=== PATIENT | female | born 1975 | race Caucasian/White ===

== ENCOUNTER 2016-09-21 13:34 | Emergency (ER) | payer SELFPAY ==
[~2016-09-21] VITALS: Ht 157.5 cm; Wt 108.9 kg
[2016-09-21 14:07] LABS: BASOPHILS % (AUTO) 0 % (0-10); EOSINOPHILS # (AUTO) 0.1 10^3/uL (0.0-0.3); EOSINOPHILS % (AUTO) 1 % (0-10); LYMPHOCYTES # (AUTO) 3.3 X 10^3 (1.0-4.0); LYMPHOCYTES % (AUTO) 31 % (12-44); MEAN CORPUSCULAR HEMOGLOBIN 27 PG (25-34); MEAN CORPUSCULAR HGB CONC 32 G/DL (32-36); MEAN CORPUSCULAR VOLUME 84 FL (80-99); MEAN PLATELET VOLUME 9.8 FL (7.4-10.4); MONOCYTES # (AUTO) 0.7 X 10^3 (0.0-1.0); MONOCYTES % (AUTO) 7 % (0-12); NEUTROPHILS # (AUTO) 6.5 X 10^3 (1.8-7.8); NEUTROPHILS % (AUTO) 62 % (42-75); PLATELET COUNT 351 10^3/uL (130-400); RED BLOOD COUNT 4.42 10^6/uL (4.35-5.85); RED CELL DISTRIBUTION WIDTH 14.1 % (10.0-14.5); WHITE BLOOD COUNT 10.6 10^3/uL (4.3-11.0)
[2016-09-21 14:26] LABS: INR 0.9 (0.8-1.4); PROTHROMBIN TIME PATIENT 12.3 SEC (12.2-14.7)
--- NOTE | 2016-09-21 14:32 | Diagnostic Imaging Report ---
Portable upright radiograph of the chest. INDICATION: Palpitations. FINDINGS: The lungs appear clear. The heart size is normal. There is no effusion or pneumothorax. The mediastinum and jennifer appear unremarkable. IMPRESSION: Unremarkable exam. Dictated by: Dictated on workstation # [id number]
[2016-09-21 14:37] LABS: ALANINE AMINOTRANSFERASE 14 U/L (0-55); ALBUMIN 3.7 GM/DL (3.2-4.5); ANION GAP 5 MMOL/L (5-14); ASPARTATE AMINO TRANSFERASE 15 U/L (5-34); BILIRUBIN,TOTAL 0.5 MG/DL (0.1-1.0); BLOOD UREA NITROGEN 8 MG/DL (7-18); BUN/CREATININE RATIO 10 (0-20); CALCIUM 9.1 MG/DL (8.5-10.1); CARBON DIOXIDE 29 MMOL/L (21-32); CHLORIDE 104 MMOL/L (98-107); GFR ESTIMATED > 60; GLUCOSE 87 MG/DL (70-105); MAGNESIUM 1.9 MG/DL (1.8-2.4); POTASSIUM 4.4 MMOL/L (3.6-5.0); SODIUM 138 MMOL/L (135-145); TOTAL PROTEIN 6.7 GM/DL (6.4-8.2)
[2016-09-21 14:43] LABS: MYOGLOBIN SERUM 24.7 NG/ML (10.0-92.0)
--- NOTE | 2016-09-21 16:05 | ED Chest Pain ---
General Chief Complaint: Cardiac/General Problems Stated Complaint: DIZZY/LIGHTHEADED/SOB/PALPITATIONS Nursing Triage Note: Pt reports feeling lightheaded and dizzy since 0700 this morning. Pt then developed pain between her shoulders and palpitations at 1200 today and reports SOA w/ activity. Pt reports she is worried because of a strong family history of cardiac issues at a young age. Nursing Sepsis Screen: No Definite Risk Source: patient Exam Limitations: no limitations History of Present Illness Time seen by provider: 14:00 Initial Comments This 40-year-old woman presents to the emergency room with complaints of lightheadedness, dizziness, palpitations, mild chest discomfort, and pain between the shoulder blades rated as 5/10 intermittently since last night. Pain this morning started at 07:30. She is concerned because of a strong family history of heart disease. She reports her brother had an NE at age 28, and she had a sister who at age 39 suddenly. She reports her sister's autopsy demonstrated coronary artery disease. Patient's father also has history of heart disease, and he had a CABG. Patient does not smoke and is not diabetic. Patient previously saw Dr. Montero in [place] for cardiology. She reports having 2 cardiac catheters with the last one being in 2008. She reports no significant abnormalities on the heart catheters. Allergies and Home Medications Allergies Coded Allergies: clindamycin (Verified Allergy, Severe, 09/21/16) metronidazole (Verified Allergy, Severe, 09/21/16) Review of Systems Constitutional: no symptoms reported EENTM: No Symptoms Reported Respiratory: No Symptoms Reported Cardiovascular: See HPI Gastrointestinal: No Symptoms Reported Genitourinary: No Symptoms Reported Musculoskeletal: see HPI Skin: no symptoms reported Psychiatric/Neurological: No Symptoms Reported Endocrine: No Symptoms Reported Past Nmtdzmi-Kkzngp-Xrkktp Hx Patient Social History Alcohol Use: Rarely Uses Recreational Drug Use: No Smoking Status: Never a Smoker Recent Foreign Travel: No Contact w/Someone Who Travel: No Recent Infectious Disease Expo: No Recent Hopitalizations: No Surgeries HX Surgeries: Yes Surgeries: Appendectomy, Cardiac (heart catheter 2, reportedly negative), Section, Gallbladder Respiratory Hx Respiratory Disorders: No Cardiovascular Hx Cardiac Disorders: Yes Cardiac Disorders: Hypertension Neurological Hx Neurological Disorders: No Reproductive System : No Genitourinary Hx Genitourinary Disorders: No Gastrointestinal Hx Gastrointestinal Disorders: No Musculoskeletal Hx Musculoskeletal Disorders: No Endocrine Hx Endocrine Disorders: No HEENT HX ENT Disorders: No Cancer Hx Cancer: No Psychosocial Hx Psychiatric Problems: No Integumentary HX Skin/Integumentary Disorder: No Physical Exam Vital Signs Vital Sign - Last 12Hours 09/21/16 13:53 Temp 97.7 Pulse 79 Resp 18 B/P (MAP) 128/90 Pulse Ox 97 O2 Delivery Room Air Capillary Refill : Less Than 3 Seconds General Appearance: No Apparent Distress, WD/WN, Obese HEENT: PERRL/EOMI, Normal ENT Inspection Neck: Normal Inspection Respiratory: Chest Non Tender, Lungs Clear, Normal Breath Sounds, No Accessory Muscle Use, No Respiratory Distress Cardiovascular: Regular Rate, Rhythm, No Edema, Normal Peripheral Pulses Gastrointestinal: Non Tender, Soft Extremity: Normal Inspection, Non Tender, No Calf Tenderness, No Pedal Edema, Other (negative Clarence) Neurologic/Psychiatric: Alert, Oriented x3, No Motor/Sensory Deficits, Normal Mood/Affect, chemical dependency therapist II-XII Norm as Tested Skin: Normal Color, Warm/Dry Progress/Results/Core Measures Results/Orders Lab Results Laboratory Tests Test 09/21/16 14:00 Range/Units White Blood Count 10.6 4.3-11.0 10^3/uL Red Blood Count 4.42 4.35-5.85 10^6/uL Hemoglobin 11.7 11.5-16.0 G/DL Hematocrit 37 35-52 % Mean Corpuscular Volume 84 80-99 FL Mean Corpuscular Hemoglobin 27 25-34 PG Mean Corpuscular Hemoglobin Concent 32 32-36 G/DL Red Cell Distribution Width 14.1 10.0-14.5 % Platelet Count 351 130-400 10^3/uL Mean Platelet Volume 9.8 7.4-10.4 FL Neutrophils (%) (Auto) 62 42-75 % Lymphocytes (%) (Auto) 31 12-44 % Monocytes (%) (Auto) 7 0-12 % Eosinophils (%) (Auto) 1 0-10 % Basophils (%) (Auto) 0 0-10 % Neutrophils # (Auto) 6.5 1.8-7.8 X 10^3 Lymphocytes # (Auto) 3.3 1.0-4.0 X 10^3 Monocytes # (Auto) 0.7 0.0-1.0 X 10^3 Eosinophils # (Auto) 0.1 0.0-0.3 10^3/uL Basophils # (Auto) 0.0 0.0-0.1 10^3/uL Prothrombin Time 12.3 12.2-14.7 SEC INR Comment 0.9 0.8-1.4 Activated Partial Thromboplast Time 27 24-35 SEC D-Dimer 0.47 0.00-0.49 UG/ML Sodium Level 138 135-145 MMOL/L Potassium Level 4.4 3.6-5.0 MMOL/L Chloride Level 104 98-107 MMOL/L Carbon Dioxide Level 29 21-32 MMOL/L Anion Gap 5 5-14 MMOL/L Blood Urea Nitrogen 8 7-18 MG/DL Creatinine 0.80 0.60-1.30 MG/DL Estimat Glomerular Filtration Rate > 60 BUN/Creatinine Ratio 10 0-20 Glucose Level 87 70-105 MG/DL Calcium Level 9.1 8.5-10.1 MG/DL Magnesium Level 1.9 1.8-2.4 MG/DL Total Bilirubin 0.5 0.1-1.0 MG/DL Aspartate Amino Transf (AST/SGOT) 15 5-34 U/L Alanine Aminotransferase (ALT/SGPT) 14 0-55 U/L Alkaline Phosphatase 71 40-136 U/L Myoglobin 24.7 10.0-92.0 NG/ML Troponin I < 0.30 <0.30 NG/ML Total Protein 6.7 6.4-8.2 GM/DL Albumin 3.7 3.2-4.5 GM/DL My Orders Orders - BRANDI RABAGO MD Cbc With Automated Diff (09/21/16 13:59) Magnesium (09/21/16 13:59) Chest 1 View, Ap/Pa Only (09/21/16 13:59) Ekg Tracing (09/21/16 13:59) Cardiac Profile 1 (09/21/16 13:59) Comprehensive Metabolic Panel (09/21/16 13:59) Myoglobin Serum (09/21/16 13:59) Protime With Inr (09/21/16 13:59) Partial Thromboplastin Time (09/21/16 13:59) O2 (09/21/16 13:59) Monitor-Rhythm Ecg Trace Only (09/21/16 13:59) Saline Lock/Iv-Start (09/21/16 13:59) Fibrin Degradation Products (09/21/16 14:11) Aspirin Tablet (Aspirin Tablet) (09/21/16 16:15) Medications Given in ED Current Medications Medications Dose Ordered Sig/Teresa Route Start Time Stop Time Status Last Admin Dose Admin Aspirin 325 mg ONCE ONCE PO 09/21/16 16:15 09/21/16 16:15 DC 09/21/16 16:09 325 MG Vital Signs/I&O Vital Sign - Last 12Hours 09/21/16 09/21/16 13:53 16:13 Temp 97.7 97.7 Pulse 79 78 Resp 18 18 B/P (MAP) 128/90 Pulse Ox 97 98 O2 Delivery Room Air Room Air Blood Pressure Mean: 103 Progress Note : Progress Note Patient's pain resolved without interventions. Workup was unremarkable. Case was reviewed with Dr. Abraham. He recommended prompt follow-up in the clinic. Development of significant coronary artery disease since her cardiac catheter in 2008 is unlikely in that time frame. Patient is aware that coronary artery disease cannot be completely ruled out emergency room. She is comfortable returning home with outpatient follow-up. ECG Initial ECG Impression Date: Sep 21, 2016 Initial ECG Impression Time: 13:55 Initial ECG Rate: 83 Initial ECG Rhythm: Normal Sinus Comment Normal sinus rhythm with no ST elevation or depression. Borderline left axis deviation. No abnormal intervals. Diagnostic Imaging Diagonstic Imaging: Xray Plain Films/CT/US/NM/MRI: chest Comments NAME: GARIMA ORLANDO MED REC#: [id number] PT STATUS: DEP ER : 1975 PHYSICIAN: BRANDI RABAGO MD ADMIT DATE: 09/21/16/ER Signed Date of Exam: 09/21/16 CHEST 1 VIEW, AP/PA ONLY Portable upright radiograph of the chest. INDICATION: Palpitations. FINDINGS: The lungs appear clear. The heart size is normal. There is no effusion or pneumothorax. The mediastinum and jennifer appear unremarkable. IMPRESSION: Unremarkable exam. Dictated by: Dictated on workstation # [id number] Dict: 09/21/16 1427 Trans: 09/21/16 3419 Interpreted by: AISHA HADLEY MD Electronically signed by: AISHA HADLEY MD 09/21/16 3997 Departure Impression Impression: Primary Impression: Chest pain Qualified Codes: R07.9 - Chest pain, unspecified Additional Impressions: Upper back pain Palpitations Disposition: 01 HOME, SELF-CARE Condition: Improved Departure-Patient Inst. Decision time for Depature: 16:00 Referrals: RENETTA ABRAHAM MD, AMANDA APRN (PCP) Primary Care Physician Patient Instructions: Chest Pain (DC) Add. Discharge Instructions: Follow-up with a head sulfide operator as soon as possible. Return to the ER if symptoms worsen or if you have persistent chest pain. Take aspirin 81 mg daily until otherwise instructed by a head sulfide operator. Follow-up with your primary care provider soon as possible. All discharge instructions reviewed with patient and/or family. Voiced understanding. BRANDI RABAGO MD Sep 21, 2016 16:05
[2016-09-21 16:13] VITALS: BP 135/92
[2016-09-21] MEDS ORDERED: ASPIRIN 325 MG (5 GR) TABLET PO ONE (16:15)
== END 2016-09-21 16:12 | disposition home or self-care (01) ==
LOC: EDUNIT# 13:34 → ER 13:39
DX: R07.9 Chest pain, unspecified (principal); M54.6 Pain in thoracic spine; R00.2 Palpitations; I10 Essential (primary) hypertension
CPT/HCPCS: 36415; 71010; 80053; 83735; 83874; 84484; 85025; 85379; 85610; 85730; 93005; 93041

== ENCOUNTER → 2022-07-08 | Outpatient (CLI) | payer MEDICAID | LOC: ORTHO 14:08 | PROVIDERS: ATTEND Orthopaedic Surgery | DX: S52.121D Displaced fracture of head of right radius, subsequent encounter for closed fracture with routine healing (principal); X58.XXXD Exposure to other specified factors, subsequent encounter | CPT/HCPCS: 29125 ==

== ENCOUNTER → 2022-07-22 | Outpatient (CLI) | payer MEDICAID ==
--- NOTE | 2022-07-22 11:01 | Diagnostic Imaging Report ---
INDICATION: Follow-up fracture EXAMINATION: Right elbow 07/22/2022 COMPARISON: 07/06/2022. FINDINGS: Three views of the elbow redemonstrate a depressed fracture of the radial head and neck. Alignment is similar to previous imaging with no surrounding callus formation. There is a secondary joint effusion. No dislocations. IMPRESSION: 1. Stable appearing radial head fracture with secondary joint effusion. Dictated by: Dictated on workstation # [id number]
== END ==
LOC: ORTHO 10:28
PROVIDERS: ATTEND Orthopaedic Surgery
DX: S52.121A Displaced fracture of head of right radius, initial encounter for closed fracture (principal); X58.XXXA Exposure to other specified factors, initial encounter
CPT/HCPCS: 73080; 99213

== ENCOUNTER → 2022-08-12 | Outpatient (CLI) | payer MEDICAID ==
--- NOTE | 2022-08-12 14:12 | Diagnostic Imaging Report ---
HISTORY: Follow-up fracture. COMPARISON: 07/22/2022. FINDINGS: Three views of the right elbow demonstrate a comminuted fracture of the right radial head. There is depression at the lateral aspect of the radial head with articular surface offset of about 4 mm. There does appear to be some healing change since the prior study. Alignment appears unchanged. There is a moderate right elbow joint effusion. Alignment otherwise appears normal. There is a small calcification at the medial epicondyle, may be an early enthesophyte or may be from remote injury. IMPRESSION: 1. Healing, comminuted, depressed fracture of the right radial head. Alignment appears unchanged. Dictated by: Dictated on workstation # [id number]
== END ==
LOC: ORTHO 09:39
PROVIDERS: ATTEND Orthopaedic Surgery
DX: S52.121D Displaced fracture of head of right radius, subsequent encounter for closed fracture with routine healing (principal); X58.XXXD Exposure to other specified factors, subsequent encounter
CPT/HCPCS: 73080; 99213

== ENCOUNTER → 2022-09-14 | Outpatient (CLI) | payer MEDICAID ==
--- NOTE | 2022-09-14 10:40 | Diagnostic Imaging Report ---
INDICATION: Fracture follow-up COMPARISON: 08/12/2022. TECHNIQUE: 3 radiographs of the right elbow dated 09/14/2022. FINDINGS: Depressed fracturing involving the radial head is again identified with near 3 mm of articular surface step-off. Overall alignment appears unchanged from the prior examination. Slightly increased sclerosis is seen within the region, felt to relate to slight interval healing. No new fracture or dislocation. No destructive osseous process. Persistent though minimally improved elbow joint effusion. No suspicious radiopaque foreign body. IMPRESSION: Slight interval healing of previously noted depressed radial head fracture remaining in stable alignment without new acute osseous abnormality. Slightly improved though persisting elbow joint effusion. Dictated by: Dictated on workstation # [id number]
== END ==
LOC: ORTHO 09:19
PROVIDERS: ATTEND Orthopaedic Surgery
DX: S52.121D Displaced fracture of head of right radius, subsequent encounter for closed fracture with routine healing (principal); X58.XXXD Exposure to other specified factors, subsequent encounter
CPT/HCPCS: 73080; 99213

== ENCOUNTER 2022-09-28 09:03 | Outpatient (RCR) | payer MEDICAID | END 2022-10-08 | disposition home or self-care (01) | PROVIDERS: ATTEND Orthopaedic Surgery | DX: S52.121D Displaced fracture of head of right radius, subsequent encounter for closed fracture with routine healing (principal); X58.XXXD Exposure to other specified factors, subsequent encounter ==

== ENCOUNTER → 2022-10-14 | Outpatient (CLI) | payer MEDICAID | LOC: ORTHO 09:46 | PROVIDERS: ATTEND Orthopaedic Surgery | DX: S52.121A Displaced fracture of head of right radius, initial encounter for closed fracture (principal); X58.XXXA Exposure to other specified factors, initial encounter | CPT/HCPCS: 99213 ==